=== PATIENT | male | born 1960 | race African-American/Black ===

== ENCOUNTER 2021-10-22 13:15 | Emergency (ER) | payer MEDICAID ==
[~2021-10-22] VITALS: Ht 182.9 cm; Wt 78.0 kg
[2021-10-22] MEDS ORDERED: ALBUTEROL (0.083%) 2.5MG/3ML NEB HHN STA (13:41)
[2021-10-22] MEDS ORDERED: IPRATROPIUM BROMIDE (0.02%) 0.5MG/2.5ML NEB HHN STA (13:41)
[2021-10-22] MEDS ORDERED: PREDNISONE 20MG TABLET PO STA (13:41)
[2021-10-22 15:00] LABS: BASOPHILS % 0.5 % (0.0-2.0); EOSINOPHILS % 1.3 % (0.0-5.0); HEMATOCRIT. 41.8 % (42.0-52.0); HEMOGLOBIN. 13.6 g/dL (14.0-18.0); MEAN CORPUSCULAR HEMOGLOBIN 31.2 pg (28.0-32.0); MEAN CORPUSCULAR VOLUME 95.8 fL (80.0-94.0); MEAN PLATELET VOLUME 7.6 fl (7.4-10.4); MONOCYTES % 7.8 % (2.0-8.0); NEUTROPHILS % 78.4 % (40.0-76.0); PLATELET 286 x1000/uL (130-400); RED BLOOD CELL COUNT 4.36 mill/uL (4.7-6.1)
[2021-10-22 15:16] LABS: CHLORIDE 100 mEq/L (98-107)
[2021-10-22] MEDS ORDERED: MAGNESIUM 2 G PREMIX 50 ML IV ONE (15:45)
[2021-10-22] MEDS ORDERED: ALBUTEROL (0.083%) 2.5MG/3ML NEB HHN SCH (16:00)
[2021-10-22 16:43] VITALS: BP 172/100
== END 2021-10-22 17:04 | disposition short-term general hospital (02) ==
LOC: ER 13:15 → CANBEDREQ 18:57
DX: I11.0 Hypertensive heart disease with heart failure (principal); I50.9 Heart failure, unspecified; J45.901 Unspecified asthma with (acute) exacerbation; Z20.822 Contact with and (suspected) exposure to COVID-19; Z87.891 Personal history of nicotine dependence
CPT/HCPCS: 36415; 71045; 80053; 83880; 84484; 85025; 87426; 93005; 93971; 94640; 99285; J7512; Z7610

== ENCOUNTER 2022-03-28 04:26 | Emergency (ER) | payer MEDICAID, OTHER ==
[~2022-03-28] VITALS: Ht 175.3 cm; Wt 75.0 kg
[2022-03-28] MEDS ORDERED: ASPIRIN 81MG TABLET PO ONE (05:45)
[2022-03-28 06:11] LABS: BASOPHILS % 0.9 % (0.0-2.0); EOSINOPHILS % 2.7 % (0.0-5.0); HEMATOCRIT. 39.9 % (42.0-52.0); HEMOGLOBIN. 13.5 g/dL (14.0-18.0); LYMPHOCYTES % 20.7 % (20.0-50.0); MEAN CORPUSCULAR HEMOGLOBIN 31.9 pg (28.0-32.0); MEAN CORPUSCULAR VOLUME 94.4 fL (80.0-94.0); MONOCYTES % 9.5 % (2.0-8.0); NEUTROPHILS % 66.2 % (40.0-76.0); PLATELET 226 x1000/uL (130-400); RED BLOOD CELL COUNT 4.23 mill/uL (4.7-6.1); RED CELL DISTRIBUTION WIDTH 14.1 % (11.6-14.6)
[2022-03-28 06:16] LABS: CHLORIDE 110 mEq/L (98-107)
[2022-03-28 06:25] LABS: ETHANOL BLOOD < 10 mg/dL
[2022-03-28] MEDS ORDERED: ASPIRIN 81MG TABLET PO SCH (07:15)
[2022-03-28 07:45] VITALS: BP 156/97
[2022-03-28] MEDS ORDERED: IBUP-2029 MT (08:18)
[2022-03-28] MEDS ORDERED: FAMO20TA8 MT (08:18)
== END 2022-03-28 09:38 | disposition home or self-care (01) ==
LOC: ER 04:29
DX: R07.89 Other chest pain (principal)
CPT/HCPCS: 36415; 71045; 80053; 80320; 83880; 84484; 85025; 93005; 99285; G0480

== ENCOUNTER 2023-12-28 12:16 | Emergency (ER) | payer MEDICARE, OTHER ==
[~2023-12-28] VITALS: Ht 177.8 cm; Wt 77.5 kg
[~2023-12-28 12:16] MED LIST: ALBU6.7H15 INH; FAMO20TA8 MT; IBUP-2029 MT; NAPR-1176 MT; P20 MT
[2023-12-28 12:34] VITALS: O2SAT 99
[2023-12-28] MEDS ORDERED: MORPHINE SULFATE 4 MG/ML CPJ (NOT FOR IM USE) IV STA (12:58)
[2023-12-28] MEDS ORDERED: ONDANSETRON HCL 4MG/2ML INJ IV STA (12:58)
[2023-12-28] MEDS ORDERED: SODIUM CHLORIDE 0.9% 1,000 ML IV ONE (13:00)
[2023-12-28] MEDS ORDERED: DIAZEPAM 5 MG/ML 2ML CPJ IV ONE (13:15)
[2023-12-28 14:13] LABS: HEMATOCRIT. 46.4 % (42.0-52.0); HEMOGLOBIN. 15.5 g/dL (14.0-18.0); MEAN CORPUSCULAR HEMOGLOBIN 31.1 pg (28.0-32.0); MEAN CORPUSCULAR HGB CONC 33.4 g/dL (31.0-37.0); MEAN CORPUSCULAR VOLUME 93.2 fL (80.0-94.0); MEAN PLATELET VOLUME 8.2 fl (7.4-10.4); PLATELET 214 x1000/uL (130-400); RED BLOOD CELL COUNT 4.98 mill/uL (4.7-6.1); RED CELL DISTRIBUTION WIDTH 13.7 % (11.6-14.6); WHITE BLOOD COUNT 6.8 x1000/uL (4.5-11.0)
[2023-12-28 14:17] LABS: DIFFERENTIAL COMMENT 1
[2023-12-28 14:29] LABS: ALANINE AMINOTRANSFERASE 16 IU/L (10-49); ALBUMIN 4.1 g/dL (3.2-4.8); ASPARTATE AMINOTRANSFERASE 19 IU/L (<34); BILIRUBIN TOTAL 0.7 mg/dL (0.1-1.0); CALCIUM 8.7 mg/dL (8.7-10.4); CARBON DIOXIDE 25 mEq/L (21-32); CHLORIDE 102 mEq/L (98-107); CREATININE 0.9 mg/dL (0.6-1.3); GLUCOSE 121 mg/dL (70-105); POTASSIUM 3.5 mEq/L (3.5-5.1); PROTEIN TOTAL 7.9 g/dL (6.0-8.3); SODIUM 134 mEq/L (136-145); UREA NITROGEN BLOOD 18 mg/dL (9-23)
[2023-12-28 14:33] LABS: ETHANOL BLOOD < 10 mg/dL (<10)
[2023-12-28 14:35] LABS: PROTHROMBIN TIME 10.6 sec (9.6-11.0)
[2023-12-28 14:55] LABS: LACTIC ACID 14.7 mmol/L (0.4-2.0)
[2023-12-28 15:46] LABS: PLATELET ESTIMATE NORMAL
[2023-12-28] MEDS ORDERED: TOPUD MT (16:04)
[2023-12-28] MEDS ORDERED: IBUP-2029 MT (16:04)
[2023-12-28] MEDS ORDERED: DIPHENHYDRAMINE 12.5MG/5ML UDC PO NR (16:15)
[2023-12-28 16:50] VITALS: BP 132/78; PULSE 82; RESP 16; TEMP 98.3
== END 2023-12-28 16:52 | disposition home or self-care (01) ==
LOC: ER 12:16
DX: R10.84 Generalized abdominal pain (principal); I10 Essential (primary) hypertension; J45.909 Unspecified asthma, uncomplicated
CPT/HCPCS: 80053; 80320; 83605; 83690; 85025; 85610; 86850; 86900; 86901; 36415; 71045; 74177; 93005; 96360; 96361; 99285; Q0163; J7030; G0480

== ENCOUNTER 2025-08-11 08:54 | Emergency (ER) | payer MEDICARE, MEDICAID ==
[~2025-08-11] VITALS: Ht 170.2 cm; Wt 82.0 kg
[~2025-08-11 08:54] MED LIST changes: +IBUP-1455 MT; -IBUP-2029 MT; +TOPUD MT
[2025-08-11 09:02] VITALS: TEMP 37.1; O2SAT 99
[2025-08-11 13:02] VITALS: BP 155/95; PULSE 60; RESP 18; O2SAT 95
== END 2025-08-11 13:07 | disposition home or self-care (01) ==
LOC: ER 08:54
DX: H53.143 Visual discomfort, bilateral (principal); I10 Essential (primary) hypertension; J45.909 Unspecified asthma, uncomplicated; Z76.5 Malingerer [conscious simulation]; Z79.1 Long term (current) use of non-steroidal anti-inflammatories (NSAID)
CPT/HCPCS: 99283